=== PATIENT | female | born 1955 | race Caucasian/White ===

== ENCOUNTER 2020-09-16 02:39 | Day surgery (SDC) | payer MEDICARE, BC, SELFPAY ==
[2020-09-05 09:46] VITALS: BMI 32.0
[2020-09-05 10:02] VITALS: BMI 32.0
--- NOTE | 2020-09-13 17:32 | WPDANESEPP ---
Anes - Eval Pre Procedure Procedure: Operation Date: 09/16/20 11:30 Proposed Procedures p Screening Colonoscopy - Roddy Ortiz MD Date/Time: 09/13/20 17:32 Pre Op Diagnosis: family hx of colon ca Patient Data Age: 64 Gender: F Height: 1.55 m Weight: 76.8 kg Allergies Allergy/AdvReac Type Severity Reaction Status Date / Time vancomycin Allergy Unknown unk Verified 09/05/20 09:44 Home Medications Medication Instructions Recorded Confirmed Type multivitamin 1 tablet PO DAILY 02/13/19 09/05/20 History calcium carbonate 600 mg calcium 600 mg PO BID 02/14/19 09/05/20 History (1,500 mg) tablet cholecalciferol (vitamin D3) 100 4,000 unit PO DAILY 02/14/19 09/05/20 History mcg (4,000 unit) capsule hydrochlorothiazide 12.5 mg tablet 12.5 mg PO DAILY #30 tablet 08/29/20 09/05/20 Rx lisinopril 20 mg tablet 20 mg PO DAILY #30 tablet 08/29/20 09/05/20 Rx omeprazole 40 mg capsule,delayed See Rx Instructions .ROUTE 08/29/20 09/05/20 Rx release .COMPLEX #90 cap Patient hx anesthesia problems: post op nausea/vomiting Family hx anesthesia problems: none PMFSH Past Medical History Medical History (Updated 09/13/20 @ 17:33 by Riccardo Campos DO) Dyslipidemia Gastroesophageal reflux disease without esophagitis Hyperinflation of lungs Hypertension Low serum IgG2 subclass level Surgical History Surgical History (Updated 09/13/20 @ 17:33 by Riccardo Campos DO) History of bladder repair surgery History of total left knee replacement Family History Family History (Updated 09/06/15 @ 23:19 by DOCTOR UNKNOWN) Sibling Hypertension Family history of diabetes mellitus in first degree relative Grandparent Carcinoma of colon Father Family history of congestive heart failure Social History Social History Smoking status: Never smoker Alcohol intake: current Drinks per week: 4 Alcohol use details: COUPLE TIMES A WEEK Substance use: never Substance use type: does not use Living arrangements: with family Spiritual care concerns: No Exam Day of Procedure 09/13/20 17:32
--- NOTE | 2020-09-16 10:19 | PM.HPGS ---
History of Present Illness History of Present Illness Consent: Risks, benefits, and alternatives have been discussed and questions answered. Patient agrees to proceed with procedure. Chief complaint: family hx of colon ca Narrative: Karely Cannon is a 64 year old female With a family history of colon cancer. Review of Systems Review of Systems: All systems reviewed & are unremarkable except as noted in HPI and below PMFSH Past Medical History Medical History Dyslipidemia Gastroesophageal reflux disease without esophagitis Hyperinflation of lungs Hypertension Low serum IgG2 subclass level Surgical History Surgical History History of bladder repair surgery History of total left knee replacement Family History Family History Sibling Hypertension Family history of diabetes mellitus in first degree relative Grandparent Carcinoma of colon Father Family history of congestive heart failure Social History Social History Smoking status: Never smoker Alcohol intake: current Drinks per week: 4 Alcohol use details: COUPLE TIMES A WEEK Substance use: never Substance use type: does not use Living arrangements: with family Spiritual care concerns: No Meds Home Medications and Allergies Home Medications Medication Instructions Recorded Confirmed Type multivitamin 1 tablet PO DAILY 02/13/19 09/05/20 History calcium carbonate 600 mg calcium 600 mg PO BID 02/14/19 09/05/20 History (1,500 mg) tablet cholecalciferol (vitamin D3) 100 4,000 unit PO DAILY 02/14/19 09/05/20 History mcg (4,000 unit) capsule hydrochlorothiazide 12.5 mg tablet 12.5 mg PO DAILY #30 tablet 08/29/20 09/05/20 Rx lisinopril 20 mg tablet 20 mg PO DAILY #30 tablet 08/29/20 09/05/20 Rx omeprazole 40 mg capsule,delayed See Rx Instructions .ROUTE 08/29/20 09/05/20 Rx release .COMPLEX #90 cap Allergies Allergy/AdvReac Type Severity Reaction Status Date / Time vancomycin Allergy Unknown unk Verified 09/05/20 09:44 Exam Resp: Auscultation: clear to auscultation bilaterally Cardio: Rate: regular rate Rhythm: regular rhythm GI: GI Palp: Yes Soft to palpation and No Tenderness to palpation present (GI) Assessment and Plan Assessment and plan (1) Colon cancer screening: Code(s): Z12.11 - Encounter for screening for malignant neoplasm of colon Status: Acute Assessment and Plan: Colonoscopy with possible biopsy or polypectomy or cautery or injection of substances.
[2020-09-16 10:24] VITALS: BP 140/60; PULSE 56; RESP 16; TEMP 36.6; O2SAT 98; BMI 31.3
[2020-09-16] MEDS: LACTATED RINGERS 1,000 ML 150 ML IV CONT (10:26)
--- NOTE | 2020-09-16 10:42 | P.PNAN_ITS ---
Anes - Eval Final PreProcedure Day of Procedure 09/16/20 10:42 Patient weight: obese Heart: regular rate and rhythm Lungs: clear to auscultation Airway: Mallampati scale class II Neurological: alert and oriented Last oral intake: >/= 8 hours ASA classification: II Emergent: no Anesthetic plan: proceed Anesthesia type and monitoring: general GIVS and standard monitoring Informed Consent: The patient's anesthetic plan and its attendant risks and be nefits were discussed with the patient/family/POA. Questions were solicited and answers provided to the satisfaction of the patient/family/POA.
[2020-09-16 11:17] VITALS: BP 109/60; PULSE 69; RESP 20; O2SAT 99
[2020-09-16 11:27] VITALS: BP 125/63; PULSE 58; RESP 20; O2SAT 99
[2020-09-16 11:37] VITALS: BP 117/61; PULSE 57; RESP 16; O2SAT 99
== END 2020-09-16 11:44 | disposition home or self-care (01) ==
PROVIDERS: PCP Internal Medicine; Visit Provider Internal Medicine Gastroenterology
PROC: 0DJD8ZZ Inspection of Lower Intestinal Tract, Via Natural or Artificial Opening Endoscopic (ICD-10-PCS; CPT 45378; principal; 2020-09-16 11:30)
DX: Z12.11 Encounter for screening for malignant neoplasm of colon (principal); K57.30 Diverticulosis of large intestine without perforation or abscess without bleeding; Z80.0 Family history of malignant neoplasm of digestive organs; I10 Essential (primary) hypertension; E78.5 Hyperlipidemia, unspecified; K21.9 Gastro-esophageal reflux disease without esophagitis
CPT/HCPCS: G0105; J2704; J7120

== ENCOUNTER → 2021-01-23 10:07 | Outpatient (CLI) | payer MEDICARE, SELFPAY ==
--- NOTE | ~2021-01-23 | CT_ITS ---
EXAMINATION: CT diagnostic chest w con EXAM DATE: 01/23/2021 10:43 INDICATION: J47.9 - Bronchiectasis, uncomplicated. TECHNIQUE: Spiral CT of the chest following intravenous injection of 75 mL Omnipaque 350. Axial, cor onal and sagittal images of the chest were reviewed. Coronal maximum intensity pixel images of chest reviewed. The dose-length product (DLP) for this examination was 255.72 mGy-cm. The exposure was t ailored according to patient size (auto mA exposure control), and iterative reconstruction (ASIR) was used as additional dose reduction technique. Comparison is made to prior examination from 07/27/2018. FINDINGS: Mild bronchiectasis unchanged. Mild basilar peripheral predominant interlobular septal thi ckening, likely interstitial lung disease with mild progression. No superimposed acute airspace disea se. There are no pleural or pericardial effusions. Tracheobronchial tree is patent. There is 9 x 12 mm right axillary lymph node, upper limits of normal in size. This lymph node was much smaller, i s largest lymph node thoracic identified. There is no pneumothorax. Heart normal in size. There is mild coronary arterial calcification, arterial sclerosis. Upper abdomen is unremarkable. Fused T10 and 11 vertebral bodies. IMPRESSION: 1. Mild progression in interstitial lung disease, still mild. 2. Mild bronchiectasis unchanged. 3. Interval increase in size of right axillary lymph nodes, largest still within normal size limits. Reviewed, dictated and finalized at location B. INSPECTOR IMPRESSION: 1. Mild progression in interstitial lung disease, still mild. 2. Mild bronchiectasis unchanged. 3. Interval increase in size of right axillary lymph nodes, largest still with in normal size limits.
[2021-01-23 10:26] LABS: Estimated Glomerular Filt Rate > 60
== END ==
PROVIDERS: PCP Internal Medicine; Visit Provider Internal Medicine Critical Care Medicine
DX: J47.9 Bronchiectasis, uncomplicated (principal); J84.9 Interstitial pulmonary disease, unspecified; I25.10 Atherosclerotic heart disease of native coronary artery without angina pectoris; I70.90 Unspecified atherosclerosis
CPT/HCPCS: 71260; Q9967

== ENCOUNTER → 2021-03-06 09:49 | Outpatient (CLI) | payer MEDICARE, SELFPAY ==
--- NOTE | ~2021-03-06 | MM_ITS ---
EXAMINATION: MM scrn dane implant BI w emre HISTORY: Screening mammogram, history of breast implant replacement after rupture TECHNIQUE: Craniocaudal and mediolateral oblique 3-D tomosynthesis images with implant displacement a nd synthetic 2-D images were generated. Craniocaudal and mediolateral oblique views of the breasts wi thout implant displacement were obtained using full field digital mammography. CAD analysis was submi tted and interpreted. COMPARISON: 07/27/2018, 07/29/2015, 07/30/2014 BREAST PARENCHYMAL COMPOSITION: There are scattered areas of fibroglandular density. FINDINGS: A small amount of extravasated silicone is noted in both breasts. There is no evidence of s uspicious mass, calcification, or architectural distortion to suggest malignancy in either breast. Th ere has been no suspicious interval change. IMPRESSION: 1. No mammographic evidence of malignancy. 2. Recommend routine screening mammography in one year. BI-RADS Category 2: Benign finding(s). Reviewed, dictated and finalized at location A. MINER
== END ==
PROVIDERS: PCP Internal Medicine; Visit Provider Obstetrics & Gynecology
DX: Z12.31 Encounter for screening mammogram for malignant neoplasm of breast (principal)
CPT/HCPCS: 77063; 77067

== ENCOUNTER → 2021-03-06 09:50 | Outpatient (CLI) | payer MEDICARE, SELFPAY ==
--- NOTE | ~2021-03-06 | DEXA_ITS ---
Bone Density Report Name: DELVIS PARSONS Age: 65 Sex: Female Ethnicity: White Date of : 1955 Indication: osteopenia; height loss; hysterectomy; postmenopausal Referring Provider: ANDRÉS COLLADO Study: Bone densitometry was performed. Exam Date: March 06, 2021 Accession number: [id number] Bone Density: Region BMD T-score Z-score Classification AP Spine (L1-L4) 0.859 -1.7 0.2 Osteopenia Femoral Neck (Left) 0.755 -0.8 0.8 Normal Total Hip (Left) 0.884 -0.5 0.9 Normal Femoral Neck (Right) 0.685 -1.5 0.2 Osteopenia Total Hip (Right) 0.854 -0.7 0.6 Normal Total Hip Mean 0.869 -0.6 0.8 Normal World Health Organization criteria for BMD impression classify patients as: Normal (T-score at or above -1.0), Osteopenia (T-score between -1.0 and -2.5), or Osteoporosis (T-score at or below -2.5). 10-year Fracture Risk(1): Major Osteoporotic Fracture 8.8% Hip Fracture 0.9% Reported Risk Factors: [place] (), Neck BMD=0.685, BMI=31.3 (1) FRAX(R) Version 3.08. Fracture probability calculated for an untreated patient. Fracture probability may be lower if the patient has received treatment. Previous Exams: Region Exam Age BMD T-score BMD Change BMD Change Date g/cm2 vs Baseline vs Previous AP Spine(L1-L4) 03/06/2021 65 0.859 -1.7 -0.004 -0.004 07/27/2018 62 0.863 -1.7 Total Hip(Left) 03/06/2021 65 0.884 -0.5 0.050* 0.050* 07/27/2018 62 0.834 -0.9 Total Hip(Right) 03/06/2021 65 0.854 -0.7 -0.009 -0.009 07/27/2018 62 0.863 -0.6 *Denotes significance at 95% confidence level, LSC for AP Spine = 0.022 g/cm2, LSC for Total Hip = 0.027 g/cm2 Clinical Information Provided by Patient: Has the following medical conditions: Hysterectomy Patient maximum height was 62 Menopause Age: 48 No regular weight bearing exercise Drinks caffeinated beverages Onset of menses at age 11 Number of children 2 Missed period for more than 6 months in a row Impression: The patient has low bone mass, based on the Total Spine T-score. The patient has an estimated ten-year risk of hip fracture of 0.9% and an estimated ten-year risk of major fracture of 8.8%, based on the WHO FRAX algorithm. No significant bone loss was observed. Discussion: BONE DENSITY IS LOW AT ONE OR MORE SKELETAL SITES. This patient's lowest T-score is low at one or more skeletal sites. It meets the World Health Organi
== END ==
PROVIDERS: PCP Internal Medicine; Visit Provider Internal Medicine
DX: Z78.0 Asymptomatic menopausal state (principal); M85.88 Other specified disorders of bone density and structure, other site; M85.851 Other specified disorders of bone density and structure, right thigh
CPT/HCPCS: 77080

== ENCOUNTER → 2021-07-28 09:57 | Outpatient (CLI) | payer MEDICARE, SELFPAY ==
--- NOTE | ~2021-07-28 | CT_ITS ---
EXAMINATION: CT chest high resolution wo mn DATE: 07/28/2021 10:09 INDICATION: Interstitial lung disease TECHNIQUE: Computed tomography (CT) of the chest was performed without intravenous contrast. The dose -length product (DLP) was 246.68 mGy-cm. Automated exposure control and iterative reconstruction tech nique were employed. COMPARISON: 01/23/2021 FINDINGS: There is chronic mild bronchiectasis of the lower lobes. Subpleural reticular and groundgla ss opacities with a lower lung zone predominance demonstrates slight worsening. There is no honeycomb ing. There are no focal airspace opacities. No pleural effusion or pneumothorax. No pathologically en larged thoracic lymph nodes are identified. The heart size is normal. Bilateral breast implants are n oted. There is mild thoracic spondylosis. IMPRESSION: 1. Mild lower lung zone predominant interstitial lung disease with slight worsening Reviewed, dictated and finalized at location A. IMPRESSION: 1. Mild lower lung zone predominant interstitial lung disease with slight worse clara
== END ==
PROVIDERS: PCP Internal Medicine; Visit Provider Internal Medicine Critical Care Medicine
DX: J84.9 Interstitial pulmonary disease, unspecified (principal)
CPT/HCPCS: 71250

== ENCOUNTER 2021-10-30 07:54 | Outpatient (CLI) | payer MEDICARE, BC, SELFPAY ==
--- NOTE | 2021-10-30 12:14 | WPDPFTINT ---
PFT Procedure Performed PFT Procedure Performed Spirometry with Pre/Post Bronchodilator Plethysmography (Lung Vol) Diffusing Cap (DLCO) Flow Vol Loop PFT Interpretation This is a pulmonary function test with pre and post-bronchodilator spirometry, plethysmography and diffusing capacity. The test was performed and results interpreted in accordance with the 2019 and 2005 ATS/ERS Task Force guidelines respectively using the Global Lung Function Initiative-2012 reference equations. Patient demonstrated good effort and cooperation. Reproducibility criteria were met. The quality of the pre bronchodilator spirometry maneuver was Grade A and post bronchodilator spirometry maneuver was Grade A. Findings: Spirometry: the contour the inspiratory and expiratory flow tracing are normal. The pre bronchodilator FVC is 3.04 L, 113% predicted. The pre bronchodilator FEV1 is 2.34 L, 111% predicted. The pre bronchodilator FEV1: FVC ratio 77%. The post bronchodilator FVC is 2.92 L, representing a 4% decrease. The post bronchodilator FEV1 is 2.37 L, representing 1% increase. The post bronchodilator FEV1: FVC ratio was 81%. Plethysmography: The total lung capacity is 4.80 L, 103% predicted. The functional residual capacity is 2.11 L, 80% predicted. The residual volume is 1.69 L, 85% predicted. Diffusion capacity: The diffusing capacity unadjusted for hemoglobin and carboxyhemoglobin is 14.4, 72% predicted. The diffusing capacity adjusted for alveolar volume is 3.65, 82% predicted. In comparison to previous pulmonary function test on 09/09/2017 the post bronchodilator FVC is unchanged from 2.96 L to 2.92 L. The post bronchodilator FEV1 is unchanged from 2.44 L to 2.37 L. The total lung capacity is unchanged from 5.01 L to 4.80 L. The functional residual capacity is unchanged from 2.14 L to 2.11 L. The residual volume is unchanged from 1.89 L to 1.69 L. The diffusing capacity unadjusted for hemoglobin and carboxyhemoglobin is decreased from 16.9 to 14.4. The diffusing capacity adjusted for alveolar volume is unchanged from 4.05 to 3.65 Impression: The spirometry is normal without evidence of an obstructive abnormality. There is no significant improvement after inhaling a single dose of albuterol. The lung volumes are normal. The diffusing capacity is normal. in comparison to the previous pulmonary function test on 09/09/2017 there has been a greater than anticipated time to pendant decrease in the diffusing capacity unadjusted for hemoglobin and carboxyhemoglobin with no significant change in the FVC, FEV1, total lung capacity, functional residual capacity, residual volume and diffusing capacity adjusted for alveolar volume. Clinical correlation is recommended.
== END 2021-10-30 07:55 | disposition home or self-care (01) ==
LOC: ANHPFT 07:55
PROVIDERS: PCP Internal Medicine; Visit Provider Internal Medicine Critical Care Medicine
DX: J84.9 Interstitial pulmonary disease, unspecified (principal)
CPT/HCPCS: 94060; 94726; 94729

== ENCOUNTER 2021-11-11 10:46 | Outpatient (CLI) | payer MEDICARE, BC, SELFPAY ==
--- NOTE | ~2021-11-11 | XR_ITS ---
MODIFIED ESOPHAGRAM HISTORY: Dysphagia. TECHNIQUE: Modified barium esophagram was performed by speech pathologist under radiologist fluorosco pic guidance. This was recorded on tape. The exam was reviewed on 11/11/2021 12:09 CDT. The DAP for this procedure was 0.91 Gycm2. Fluoroscopy time is 1.4 minutes. FINDINGS: Lateral projection of the cervical spine demonstrates degenerative anterolisthesis at C4- 5. There is fusion at C5-6.. There is one episode of laryngeal penetration after swallowing solid whi ch was cleared without aspiration. Otherwise, normal swallowing function.. IMPRESSION: 1: Single episode of laryngeal penetration without aspiration. 2: Please refer to speech pathologist report for additional detail. Reviewed, dictated and finalized at location A.
--- NOTE | 2021-11-11 16:31 | REHSTMBS ---
Assessment and note entered by Nimisha Nielsen, [employer]ENN[employer] DESK TEAM MEMBER Modified Barium Swallow Evaluation Diagnosis dysphagia Feeding Type Recommended Oral Food Consistency Regular, Level 7 Liquid Consistency Thin (0) ST Clinical Summary The patient was seated for a lateral view and presented with 5cc of thin liquid barium via a spoon, pudding consistency barium via a spoon, mixed liquid/solid consistency via a spoon, a cracker coated with barium pudding via spoon, and an uncontrolled thin liquid barium bolus. This was presented via a straw & cup. Oral preparatory and oral phase symptoms: none. Pharyngeal phase symptoms: laryngeal penetration after the initial trial of solids (occurred as pt swallowed remaining amount); it was cleared with dry swallow with no occurrence of aspiration. Esophageal stage symptoms: none. No aspiration occurred. Impressions: Overall, the patient presents with functional swallow ability throughout all stages of the swallow; however, laryngeal penetration was exhibited x1 instance with solid trial. It was cleared without any instances of aspiration.
== END 2021-11-11 10:47 | disposition home or self-care (01) ==
PROVIDERS: PCP Internal Medicine; Visit Provider Internal Medicine Critical Care Medicine
DX: J84.9 Interstitial pulmonary disease, unspecified (principal); R13.10 Dysphagia, unspecified
CPT/HCPCS: 92611

== ENCOUNTER 2022-01-23 00:48 | Day surgery (SDC) | payer MEDICARE, BC, SELFPAY ==
[2022-01-16 13:43] VITALS: BMI 31.8
--- NOTE | 2022-01-22 20:39 | PM.HPGS ---
History of Present Illness History of Present Illness Consent: Risks, benefits, and alternatives have been discussed and questions answered. Patient agrees to proceed with procedure. Chief complaint: GERD Narrative: Karely Cannon is a 66 year old female With chronic acid reflux symptoms which have become refractory. She has been regurgitating at night lately. her primary care provider doubled her omeprazole to twice a day. 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 Low serum IgG2 subclass level Mixed hyperlipidemia Osteopenia of multiple sites Postmenopausal Pre-diabetes Preoperative clearance Right flank pain RUQ pain Screening for osteoporosis Serum potassium elevated Surgical History Surgical History History of bladder repair surgery History of total left knee replacement Family History Family History Sibling Hypertension Family history of diabetes mellitus in first degree relative Grandparent Carcinoma of colon Father Family history of congestive heart failure Social History Social History Smoking status: Never smoker Second hand tobacco smoke exposure: Yes Alcohol intake: current Drinks per week: 4 Alcohol use details: COUPLE TIMES A WEEK Substance use: never Substance use type: does not use Lack of Transportation: No Lack of Food: Never True Current Housing: I Have Housing Concerned About Future Housing: No Difficulty Paying Gas/Electric Bills: No Difficulty Paying for Meds: No Currently Unemployed: No Education: High School Diploma/GED Difficulty w/ Childcare or Family Care: No Living arrangements: with family Spiritual care concerns: No Meds Home Medications and Allergies Home Medications Medication Instructions Recorded Confirmed Type multivitamin 1 tablet PO DAILY 02/13/19 01/16/22 History calcium carbonate 600 mg calcium 600 mg PO BID 02/14/19 01/16/22 History (1,500 mg) tablet (Calcium) dicyclomine 10 mg capsule 10 mg PO TID PRN abdominal pain 12/27/20 01/16/22 Rx #30 caps conjugated estrogens 0.625 mg/gram 0.625 mg vaginal ONCE #30 grams 03/17/21 01/16/22 Rx vaginal cream (Premarin) hydrochlorothiazide 12.5 mg tablet 12.5 mg PO DAILY #90 tabs 09/04/21 01/16/22 Rx lisinopril 20 mg tablet 20 mg PO DAILY #90 tabs 09/04/21 01/16/22 Rx pantoprazole 40 mg tablet,delayed 40 mg PO BID #60 tabs 01/13/22 01/16/22 Rx release Allergies Allergy/AdvReac Type Severity Reaction Status Date / Time vancomycin Allergy Unknown unk Verified 01/16/22 13:41 Exam Const: General: alert Orientation/consciousness: patient oriented x3 Resp: Auscultation: clear to auscultation bilaterally Cardio: Rhythm: regular rhythm GI: GI Palp: Yes Soft to palpation and No Tenderness to palpation present (GI) Neuro: General: patient oriented x3 Assessment and Plan Assessment and plan (1) Gastroesophageal reflux disease without esophagitis: Code(s): K21.9 - Gastro-esophageal reflux disease without esophagitis Status: Acute Assessment and Plan: EGD with possible biopsy or dilatation or cautery.
[2022-01-23 12:22] VITALS: BP 140/75; PULSE 68; RESP 18; TEMP 36.2; O2SAT 98
[2022-01-23] MEDS: LACTATED RINGERS 1,000 ML 150 ML IV CONT (12:38)
--- NOTE | 2022-01-23 12:53 | WPDANESEPPF ---
Anes - Initial Pre Proc Eval Procedure: Operation Date: 01/23/22 13:45 Proposed Procedures p Esophagogastroduodenoscopy - oRddy Ortiz MD Date/Time: 01/23/22 12:53 Surgeon: Roddy Ortiz MD Pre Op Diagnosis: GERD Patient Data Age: 66 Gender: F Height: 1.55 m Weight: 76.4 kg Last Vital Signs Temp 97.2 F L 01/23/22 12: Pulse 68 01/23/22 12:22 Resp 18 01/23/22 12:22 BP 140/75 01/23/22 12:22 Pulse Ox 98 01/23/22 12:22 O2 Del Method Room Air 01/23/22 12:22 Allergies Allergy/AdvReac Type Severity Reaction Status Date / Time vancomycin Allergy Unknown unk Verified 01/16/22 13:41 Home Medications Medication Instructions Recorded Confirmed Type multivitamin 1 tablet PO DAILY 02/13/19 01/16/22 History calcium carbonate 600 mg calcium 600 mg PO BID 02/14/19 01/16/22 History (1,500 mg) tablet (Calcium) dicyclomine 10 mg capsule 10 mg PO TID PRN abdominal pain 12/27/20 01/16/22 Rx #30 caps conjugated estrogens 0.625 mg/gram 0.625 mg vaginal ONCE #30 grams 03/17/21 01/16/22 Rx vaginal cream (Premarin) hydrochlorothiazide 12.5 mg tablet 12.5 mg PO DAILY #90 tabs 09/04/21 01/16/22 Rx lisinopril 20 mg tablet 20 mg PO DAILY #90 tabs 09/04/21 01/16/22 Rx pantoprazole 40 mg tablet,delayed 40 mg PO BID #60 tabs 01/13/22 01/16/22 Rx release Patient hx anesthesia problems: none Family hx anesthesia problems: none Results Review: All pre-operative results and documents have been reviewed as part of the pre-operative evaluation. 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 Low serum IgG2 subclass level Mixed hyperlipidemia Osteopenia of multiple sites Postmenopausal Pre-diabetes Preoperative clearance Right flank pain RUQ pain Screening for osteoporosis Serum potassium elevated Surgical History Surgical History History of bladder repair surgery History of total left knee replacement Family History Family History Sibling Hypertension Family history of diabetes mellitus in first degree relative Grandparent Carcinoma of colon Father Family history of congestive heart failure Social History Social History (Updated 12/24/21 @ 10:21 by Terrie Wise MA) Smoking status: Never smoker Second hand tobacco smoke exposure: Yes Alcohol intake: current Drinks per week: 4 Alcohol use details: COUPLE TIMES A WEEK Substance use: never Substance use type: does not use Lack of Transportation: No Lack of Food: Never True Current Housing: I Have Housing Concerned About Future Housing: No Difficulty Paying Gas/Electric Bills: No Difficulty Paying for Meds: No Currently Unemployed: No Education: High School Diploma/GED Difficulty w/ Childcare or Family Care: No Living arrangements: with family Spiritual care concerns: No Anes - Eval Final PreProcedure Day of Procedure 01/23/22 12:53 Patient weight: obese Heart: regular rate and rhythm Lungs: clear to auscultation Airway: Mallampati scale class II Neurological: alert and oriented Last oral intake: >/= 8 hours ASA classification: II Emergent: no Anesthetic plan: proceed Anesthesia type and monitoring: general GIVS and standard monitoring Results Review: All pre-operative results and documents have been reviewed as part of the pre-operative evaluation
[2022-01-23 13:54] VITALS: BP 122/71; PULSE 60; RESP 20; O2SAT 100
[2022-01-23 14:04] VITALS: BP 131/70; PULSE 56; RESP 20; O2SAT 100
[2022-01-23 14:14] VITALS: BP 130/63; PULSE 58; RESP 20; O2SAT 99
== END 2022-01-23 14:20 | disposition home or self-care (01) ==
PROVIDERS: PCP Internal Medicine; Visit Provider Internal Medicine Gastroenterology
PROC: 0DJ08ZZ Inspection of Upper Intestinal Tract, Via Natural or Artificial Opening Endoscopic (ICD-10-PCS; CPT 43235; principal; 2022-01-23 13:45)
DX: K21.9 Gastro-esophageal reflux disease without esophagitis (principal); K22.2 Esophageal obstruction; I10 Essential (primary) hypertension; E78.2 Mixed hyperlipidemia; R73.03 Prediabetes; E66.9 Obesity, unspecified; Z68.31 Body mass index [BMI] 31.0-31.9, adult
CPT/HCPCS: 43239; 88305; J2704; J7120

== ENCOUNTER → 2022-03-03 09:39 | Outpatient (CLI) | payer MEDICARE, BC, SELFPAY ==
--- NOTE | ~2022-03-03 | CT_ITS ---
EXAMINATION:CT chest high resolution wo co DATE: 03/03/2022 09:58 INDICATION: Interstitial lung disease. TECHNIQUE: Computed tomography (CT) of the chest was performed without intravenous contrast. Automate d exposure control and iterative reconstruction technique were employed. The dose-length product (DLP ) was 265.65 mGy-cm. COMPARISON: Chest CT 07/28/2021, 01/23/2021 FINDINGS: There is mild scarring at the lung apices. There is a left posteromedial diaphragmatic shilo ia containing fat. There is peripheral septal thickening in the inferior lungs associated with mild g roundglass opacities. There is mild bronchiectasis in the inferior lungs. No honeycombing. No pleural effusion. The heart size is normal. There are coronary artery calcifications. No pericardial effusio n. There are bilateral breast implants with intracapsular rupture on the right. There is a 19 x 16 mm right axillary lymph node. There is an 8 mm cyst in the liver. IMPRESSION: 1. Mild chronic interstitial lung disease in a pattern of nonspecific interstitial pneumonia (NSIP), stable from 07/28/2021. 2. Mildly enlarged right axillary lymph node. 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 Consider a diagnostic mammogram. Reviewed, dictated and finalized at location A. ORT REPRESENTATIVE IMPRESSION: 1. Mild chronic interstitial lung disease in a pattern of nonspecific interstit ial pneumonia (NSIP), stable from 07/28/2021. 2. Mildly enlarged right axillary lymph node. 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 Consider a rica gnostic mammogram.
== END ==
PROVIDERS: PCP Internal Medicine; Visit Provider Internal Medicine Critical Care Medicine
DX: J84.9 Interstitial pulmonary disease, unspecified (principal); R59.0 Localized enlarged lymph nodes
CPT/HCPCS: 71250

== ENCOUNTER 2022-03-10 09:54 | Outpatient (CLI) | payer MEDICARE, BC, SELFPAY ==
--- NOTE | ~2022-03-10 | US_ITS ---
EXAMINATION: US abdomen complete DATE: 03/10/2022 10:45 INDICATION: R10.13 - Epigastric pain TECHNIQUE: Multiple grayscale and Doppler ultrasound images of the abdomen were obtained. COMPARISON: 07/27/2018, CT chest 03/03/2022 CT abdomen and pelvis 01/27/2017. FINDINGS: The visualized portions of the pancreas are normal. The liver is normal with normal echogen icity and echotexture. No surface nodularity. Normal hepatopetal flow in the main portal vein. The ga llbladder is normal with no abnormal wall thickening, pericholecystic fluid or stones. The common rod e duct measures 3 mm. There was no sonographic Perez sign. The visualized portions of the aorta and inferior vena cava are normal. The right kidney measures 10.5 x 5.5 x 4.8. The left kidney measures 10.9 x 5.8 x 5.1. The kidneys de monstrate normal parenchymal echogenicity. There is no hydronephrosis. The spleen is normal in appear ance and measures 10.5 cm. IMPRESSION: Normal abdominal ultrasound findings. Reviewed, dictated and finalized at location K. ED GOLD PLATER
== END 2022-03-10 09:55 | disposition home or self-care (01) ==
PROVIDERS: PCP Internal Medicine; Visit Provider Internal Medicine Gastroenterology
DX: R10.13 Epigastric pain (principal)
CPT/HCPCS: 76700

== ENCOUNTER → 2022-03-23 09:04 | Outpatient (CLI) | payer MEDICARE, BC, SELFPAY ==
--- NOTE | ~2022-03-23 | MM_ITS ---
EXAMINATION: MM diag dane implant BI w emre HISTORY: Mildly enlarged right axillary lymph node reported on 02/27/2022 CT chest exam TECHNIQUE: Implant displaced ML, MLO and CC 3-D tomosynthesis images of both breasts were performed a nd synthetic 2-D images were generated. Bilateral ML, MLO and CC implant digital mammogram images. CA D analysis was submitted and interpreted. COMPARISON: 03/06/2021, 07/27/2018 bilateral implant screening mammogram examinations BREAST PARENCHYMAL COMPOSITION: There are scattered areas of fibroglandular density. FINDINGS: Status post bilateral augmentation mammoplasty. No suspicious mass, architectural distortion, microcalcifications, skin thickening or retraction of e ither breast or significant new or developing density of either breast is noted. Bilateral circumscri bed benign-appearing axillary lymph nodes. IMPRESSION: 1. No mammographic evidence of malignancy 2. Routine mammographic screening is recommended BI-RADS Category 1: Negative Reviewed, dictated and finalized at location A. TY SHERIFF GENERALIST/BAILIFF
== END ==
PROVIDERS: PCP Internal Medicine; Visit Provider Nurse Practitioner
DX: R59.0 Localized enlarged lymph nodes (principal)
CPT/HCPCS: 77062; 77066; G0279

== ENCOUNTER 2022-04-23 07:52 | Outpatient (CLI) | payer MEDICARE, BC, SELFPAY ==
--- NOTE | 2022-04-23 13:52 | WPDPFTINT ---
PFT Procedure Performed PFT Procedure Performed Spirometry with Pre/Post Bronchodilator Plethysmography (Lung Vol) Diffusing Cap (DLCO) Flow Vol Loop PFT Interpretation This is a pulmonary function test with pre and post-bronchodilator spirometry, plethysmography and diffusing capacity. The test was performed and results interpreted in accordance with the 2019 and 2005 ATS/ERS Task Force guidelines respectively using the Global Lung Function Initiative-2012 reference equations. Patient demonstrated good effort and cooperation. Reproducibility criteria were met. The quality of the pre bronchodilator spirometry maneuver was Grade A and post bronchodilator spirometry maneuver was Grade A. Findings: Spirometry: The contour the inspiratory and expiratory flow tracing are normal. The pre bronchodilator FVC is 3.17 L, 119% predicted. The pre bronchodilator FEV1 is 2.50 L, 121% predicted. The pre bronchodilator FEV1: FVC ratio 79%. The post bronchodilator FVC is 3.05 L, representing a 4% decrease. The post bronchodilator FEV1 is 2.48 L, representing 1% decrease. The post bronchodilator FEV1: FVC ratio is 81%. Plethysmography: The total lung capacity is 5.04 L, 108% predicted. The functional residual capacity is 2.33 L, 88% predicted. The residual volume is 1.87 L, 92% predicted. Diffusing capacity: The diffusing capacity unadjusted for hemoglobin and carboxyhemoglobin is 15.0, 76% predicted. The diffusing capacity adjusted for alveolar volume is 3.61, 81% predicted. In comparison to previous pulmonary function test on 10/30/2021 the post bronchodilator FVC is unchanged from 2.92 L to 3.05 L. The post bronchodilator FEV1 is unchanged from 2.37 L to 2.48 L. The total lung capacity is unchanged from 4.80 L to 5.04 L. The functional residual capacity is unchanged from 2.11 L to 2.33 L. The residual volume is unchanged from 1.69 L to 1.87 L. The diffusion capacity unadjusted for hemoglobin and carboxyhemoglobin is unchanged from 14.4 to 15.0. The diffusing capacity adjusted for alveolar volume is unchanged from 3.65 to 3.61. Impression: The spirometry is normal without evidence of an obstructive abnormality. There is no significant improvement after inhaling a single dose of albuterol. The lung volumes are normal. The diffusing capacity is normal. In comparison to PFTs from 10/30/2021 there has been no significant change in the FVC, FEV1, total lung capacity, functional residual capacity, residual volume, or diffusing capacity. Clinical correlation is recommended.
== END 2022-04-23 07:53 | disposition home or self-care (01) ==
LOC: ANHPFT 07:53
PROVIDERS: PCP Internal Medicine; Visit Provider Internal Medicine Critical Care Medicine
DX: J84.9 Interstitial pulmonary disease, unspecified (principal)
CPT/HCPCS: 94060; 94726; 94729

== ENCOUNTER 2022-06-03 15:15 | Emergency (ER) | payer MEDICARE, BC, SELFPAY ==
[2022-06-03] VITALS (25 sets, daily range): BP systolic 105–137; BP diastolic 49–84; PULSE 66–99; RESP 11–28; TEMP 36.4; O2SAT 92–100
--- NOTE | ~2022-06-03 | XR_ITS ---
EXAMINATION: XR chest 2V DATE: 06/03/2022 15:57 INDICATION: Transient alteration of awareness TECHNIQUE: AP and lateral views of the chest are obtained. COMPARISON: None available FINDINGS: The lungs are free of acute opacities. No pleural effusion or pneumothorax. The cardiomedia stinal silhouette is normal. There is moderate thoracic spondylosis. Bilateral breast implants are no pam. IMPRESSION: 1. No acute cardiopulmonary abnormality. Reviewed, dictated and finalized at location B.
--- NOTE | 2022-06-03 15:22 | ECG_ITS ---
Measurements Intervals [place] Rate: 80 P: 43 UT: 132 QRS: -4 QRSD: 98 T: -7 QT: 387 QTc: 447 Interpretive Statements SINUS RHYTHM MODERATE VOLTAGE CRITERIA FOR LVH, CONSIDER NORMAL VARIANT [MEETS CRITERIA IN ONE OF: R(aVL), S(V1), R(V5), R(V5/V6)+S(V1)] INFERIOR MYOCARDIAL INFARCTION , OF INDETERMINATE AGE [40+ ms Q WAVE AND/OR ST/T ABNORMALITY IN II/aVF] NONSPECIFIC T-WAVE ABNORMALITY ABNORMAL EKG NO PREVIOUS ECG AVAILABLE FOR COMPARISON Electronically Signed On 06-04-2022 8:56:58 CDT by Roger Lockwood M.D.
--- NOTE | 2022-06-03 15:27 | ED.SYNCOPE ---
HPI - Syncope General Chief Complaint: Syncope Stated Complaint: syncope Time Seen by Provider: 06/03/22 15:24 Source: patient and family Mode of arrival: wheelchair Limitations: no limitations History of Present Illness HPI narrative: Patient is a 66-year-old female with a history of hypertension and acid reflux presenting to the emergency department for evaluation following a syncopal event. Patient states that she had been fasting for 16 hours as part of a diet plan. Patient reports that she was going to break the fast and make breakfast around 12:30 PM this afternoon, when she felt she needed to have a bowel movement. Patient was sitting down at that time, and when she went to stand up became lightheaded, dizzy, diaphoretic and pale. Patient's noticed that her legs were weak and lowered her back down to the chair where then she lost consciousness for short period of time. Patient's was able to use his home glucometer to check her blood glucose which was greater than 100. Patient quickly regained her consciousness and was not confused, thus patient was transported via personal vehicle to this emergency department by . At the time of assessment, patient reports fatigue, generalized weakness, nausea. She denies headache pain, chest pain, palpitations. She denies shortness of breath, cough. No pleuritic pain. No leg swelling or calf pain. No recent surgery or immobility. Patient reports history of this in the past, reports history of syncope with bowel movements. Patient reports no oral intake since yesterday evening. Related Data Home Medications Medication Instructions Recorded Confirmed multivitamin 1 tablet PO DAILY 02/13/19 01/16/22 calcium carbonate 600 mg calcium 600 mg PO BID 02/14/19 01/16/22 (1,500 mg) tablet (Calcium) Allergies Allergy/AdvReac Type Severity Reaction Status Date / Time vancomycin Allergy Unknown unk Verified 05/12/22 11:09 Review of Systems Review of Systems: CONSTITUTIONAL: Denies fever, chills, or sweats. EYES: Denies visual changes, redness, or discharge. ENT: Denies rhinorrhea, congestion, sore throat, or otalgia. CARDIOVASCULAR: Denies chest pain, palpitations, or edema. RESPIRATORY: Denies cough or dyspnea. GASTROINTESTINAL: Denies abdominal pain, nausea, vomiting, or diarrhea. GENITOURINARY: Denies dysuria or hematuria. SKIN: Denies rash or itching. MUSCULOSKELETAL: Denies back pain, joint pain, or myalgia. NEUROLOGIC: Denies headache, numbness, reports generalized weakness PMFSH Past Medical History Medical History Acute non-recurrent maxillary sinusitis Acute right-sided low back pain without sciatica BMI 29.0-29.9,adult Body mass index [BMI] 27.0-27.9, adult (11/01/18) Dyslipidemia Encounter for routine adult health examination without abnormal findings Esophageal dysmotility Follow-up after removal of joint prosthesis Gastroesophageal reflux disease without esophagitis Herpes zoster without complication Hyperinflation of lungs Hypertension correction use of drug Low serum IgG2 subclass level Mixed hyperlipidemia Osteopenia of multiple sites Postmenopausal Pre-diabetes Preoperative clearance Right flank pain RUQ pain Screening for osteoporosis Serum potassium elevated Surgical History Surgical History History of bladder repair surgery History of total left knee replacement Family History Family History Sibling Hypertension Family history of diabetes mellitus in first degree relative Grandparent Carcinoma of colon Father Family history of congestive heart failure Social History Social History Smoking status: Never smoker Second hand tobacco smoke exposure: Yes Alcohol intake: current Drinks per week: 4 Al
[2022-06-03 16:02] LABS: Basophils Percent Auto 0.4 % (0.2-1.2); Eosinophils Absolute Auto 0.1 K/mm3 (0-0.3); Eosinophils Percent Auto 1.2 % (0-4.4); Hematocrit 39.9 % (37.0-47.0); Hemoglobin 13.4 g/dL (12.0-15.0); Immature Granulocyte Absolute 0.03 K/mm3 (0.00-0.031); Immature Granulocyte Percent A 0.4 % (0-0.5); Lymphocytes Absolute Auto 1.58 K/mm3 (0.9-3.2); Lymphocytes Percent Auto 21.2 % (18.3-44.2); Mean Corpuscular HGB Conc 33.6 g/dl (32-36); Mean Corpuscular Hemoglobin 30.4 pg (26-34); Mean Corpuscular Volume 90.5 fl (80-100); Monocytes Absolute Auto 0.4 K/mm3 (0.1-0.6); Monocytes Percent Auto 5.8 % (2.6-8.5); Neutrophils Absolute Auto 5.3 K/mm3 (1.3-6.7); Platelet Count Result 271 k/mm3 (150-375); Red Blood Count 4.41 M/mm3 (4.2-5.4); Red Cell Distribution Width 13.3 % (11.5-14.5); White Blood Count 7.5 K/mm3 (4.5-10.0)
[2022-06-03] MEDS: SODIUM CHLORIDE 0.9% IV 1,000 ML 999 ML IV CONT ×2 (16:16→17:27)
[2022-06-03] MEDS: ONDANSETRON INJ 4 MG/2 ML VIAL IV PUSH (16:16)
[2022-06-03 16:20] LABS: Alanine Aminotransferase 31 U/L (6-35); Albumin Level 4.9 g/dL (3.5-5.1); Alkaline Phosphatase 67 U/L (38-126); Anion Gap 9 mmol/L (8-16); Aspartate Amino Transferase 38 U/L (14-36); Bilirubin,Total 0.7 mg/dL (0.2-1.3); Blood Urea Nitrogen 36 mg/dL (7-17); Carbon Dioxide 28 mmol/L (22-30); Chloride 97 mmol/L (98-107); Estimated CRCL calculation 39 ml/min; Estimated Glomerular Filt Rate 45; Glucose 123 mg/dL (65-110); Potassium 3.4 mmol/L (3.4-5.0); Sodium 134 mmol/L (137-145)
[2022-06-03 16:31] LABS: Troponin I < 0.012 ng/mL (0.000-0.034)
[2022-06-03 16:37] LABS: Appearance Urine Turbid (Clear); Bacteria Urine 1+ /hpf; Bilirubin Urine Negative (Negative); Blood Urine Negative (Negative); Color Urine Dark Yellow (Yellow); Glucose Urine UA Negative (Negative); Hyaline Casts Urine Present /lpf; Ketones Urine Negative (Negative); Leukocyte Esterase Ur Negative LEU/UL (Negative); Nitrate Urine Negative (Negative); Protein Urine Negative (Negative); RBC Urine >100 /hpf (0-2); Specific Grav Ur 1.016 (1.001-1.035); Squamous Epithelial Cell Urine Many /hpf (Few); Urobilinogen Urine 0.2 mg/dL (<2.0); WBC Urine 0-5 /hpf
[2022-06-03 16:38] LABS: Add Urine Microscopic? YES
[2022-06-03 19:27] LABS: Troponin I < 0.012 ng/mL (0.000-0.034)
== END 2022-06-03 21:06 | disposition home or self-care (01) ==
PROVIDERS: Emergency Medicine; Emergency Provider Emergency Medicine; PCP Internal Medicine
DX: R55 Syncope and collapse (principal); E86.0 Dehydration; I10 Essential (primary) hypertension; K21.9 Gastro-esophageal reflux disease without esophagitis; E78.2 Mixed hyperlipidemia; M85.89 Other specified disorders of bone density and structure, multiple sites; R73.03 Prediabetes; Z96.652 Presence of left artificial knee joint
CPT/HCPCS: 36415; 71046; 80053; 81001; 84484; 85025; 93005; 96361; 96374; 99284; J2405; J7030

== ENCOUNTER 2022-06-24 08:42 | Outpatient (CLI) | payer MEDICARE, BC, SELFPAY ==
--- NOTE | ~2022-06-24 | XR_ITS ---
EXAMINATION: XR abdomen obstructive series DATE: 06/24/2022 09:33 INDICATION: History of IBS. Diarrhea. TECHNIQUE: Supine and upright views of the abdomen. FINDINGS: CT dated 01/26/2017 The visualized lung parenchyma is normal.. There is a nonobstructive bowel gas pattern. Gas and stool are seen throughout the colon to the level of the rectum. There is no free air. Large amount of ret ained fecal material throughout the colon. There is calcification at on the right at the L5 level, mo st likely phlebolith. IMPRESSION: 1. No acute abdominal abnormality. Reviewed, dictated and finalized at location B.
== END 2022-06-24 08:43 | disposition home or self-care (01) ==
LOC: ANHIMG 08:47
PROVIDERS: PCP Family Medicine; Visit Provider Family Medicine
DX: K58.9 Irritable bowel syndrome, unspecified (principal)
CPT/HCPCS: 74019

== ENCOUNTER 2023-05-20 12:30 | Outpatient (CLI) | payer MEDICARE, BC, SELFPAY ==
--- NOTE | 2023-05-24 10:27 | P.PCNPFT_ITS ---
PFT Procedure Performed PFT Procedure Performed Plethysmography (Lung Vol) Diffusing Cap (DLCO) Flow Vol Loop Spirometry w/o Bronchodil PFT Interpretation This is a pulmonary function test with spirometry, plethysmography and diffusing capacity. The test was performed and results interpreted in accordance with the 2019 and 2005 ATS/ERS Task Force guidelines respectively using the Global Lung Function Initiative-2012 reference equations. Patient demonstrated good effort and cooperation. Reproducibility criteria were met. The quality of the spirometry maneuver was Grade A. Findings: Spirometry: The contour the inspiratory and expiratory flow tracing are normal. The FVC is 3.12 L, 117% predicted. The FEV1 is 2.41 L, 116% predicted. The FEV1: FVC ratio 77%. Plethysmography: The total lung capacity is 5.26 L, 111% predicted. The functional residual capacity is 2.18 L, 81% predicted. The residual volume is 2.13 L, 104% predicted. Diffusing capacity: The diffusing capacity unadjusted for hemoglobin and carboxyhemoglobin is 14.3, 72% predicted. The diffusing capacity adjusted for a lveolar volume is 3.29, 75% predicted. In comparison to previous pulmonary function testing on 04/23/2022 the pre bronchodilator FVC is unchanged from 3.17 L to 3.12 L. The pre bronchodilator FEV1 is unchanged from 2.50 L to 2.41 L. The total lung capacity is unchanged from 5.04 L to 5.26 L. The functional residual capacity is unchanged from 2.33 L to 2.18 L. The residual volume is unchanged from 1.87 L to 2.13 L. The diffusing capacity unadjusted for hemoglobin and carboxyhemoglobin is unchanged from 15.0 to 14.3. The diffusing capacity adjusted for alveolar volume is unchanged from 3.61 to 3.29. Impression: The spirometry is normal without evidence of an obstructive abnormality. The lung volumes are normal. The diffusing capacity is normal. In comparison to previous pulmonary function testing on 04/23/2022 there is no significant change in the FVC, FEV1, total lung capacity, functional residual capacity, residual volume, or diffusing capacity. Clinical correlation is re commended.
== END 2023-05-20 12:31 | disposition home or self-care (01) ==
LOC: ANHPFT 12:32
PROVIDERS: PCP Family Medicine; Visit Provider Internal Medicine Critical Care Medicine
DX: J84.9 Interstitial pulmonary disease, unspecified (principal)
CPT/HCPCS: 94375; 94726; 94729

== ENCOUNTER 2023-05-20 13:42 | Outpatient (CLI) | payer MEDICARE, BC, SELFPAY ==
--- NOTE | ~2023-05-20 | CT_ITS ---
EXAMINATION: CT chest high resolution [facility] DATE: 05/20/2023 13:58 INDICATION: ILD TECHNIQUE: Computed tomography (CT) of the chest was performed without intravenous contrast. Addition al 3D reconstructions utilizing coronal maximum intensity projection (MIP) were performed. Automated exposure control and iterative reconstruction technique were employed. The dose-length product was 18 1.53 mGy-cm. COMPARISON: Chest CT dated 03/03/2022 FINDINGS: Mild bronchiectatic change at the bilateral lower lungs. Also in the lower lungs is peripheral predom inant mild irregular septal line thickening and groundglass opacities without honeycombing at the rod ateral lower lungs most consistent with nonspecific interstitial pneumonia (NSIP) pattern chronic int erstitial lung disease. No pleural effusion. Heart size is normal. Small amount of atherosclerotic co ronary artery calcific lesion. No pericardial effusion. Thoracic aorta is normal in caliber. Bilatera l breast implants. Again noted is mild right axillary lymphadenopathy the largest lymph node measurin g 1.9 x 1.2 cm, previously reported as 19 x 16 mm although prior imaging is unavailable at this time for comparison. No other pathologically enlarged thoracic lymphadenopathy. 8 mm low-attenuation hepat ic cyst. Visualized upper abdomen is otherwise unremarkable. Anterior fusion at T10-T11. Mild to mode rate spondylosis in the more cephalad thoracic spine. IMPRESSION: 1. Mild peripheral and lower lung predominant chronic interstitial lung disease in a nonspecific inte rstitial pneumonia (NSIP) pattern with mild associated bronchiectasis. 2. Persistent mild right axillary lymphadenopathy which is most likely reactive. Reviewed, dictated and finalized at location B. IMPRESSION: 1. Mild peripheral and lower lung predominant chronic interstitial lung disease in a nonspecific interstitial pneumonia (NSIP) pattern with mild associated br onchiectasis. 2. Persistent mild right axillary lymphadenopathy which is most likely reactive .
== END 2023-05-20 13:43 ==
PROVIDERS: PCP Family Medicine; Visit Provider Internal Medicine Critical Care Medicine
DX: J84.9 Interstitial pulmonary disease, unspecified (principal)
CPT/HCPCS: 71250

== ENCOUNTER 2023-08-21 11:15 | Outpatient (CLI) | payer MEDICARE, BC, SELFPAY ==
--- NOTE | ~2023-08-21 | MM_ITS ---
EXAMINATION: MM scrn dane implant BI w emre HISTORY: Screening mammogram TECHNIQUE: Craniocaudal and mediolateral oblique 3-D tomosynthesis images with implant displacement a nd synthetic 2-D images were generated. Craniocaudal and mediolateral oblique views of the breasts wi thout implant displacement were obtained using full field digital mammography. CAD analysis was submi tted and interpreted. COMPARISON: Comparison to multiple prior studies sequentially, with oldest reviewed study dated 07/30. BREAST PARENCHYMAL COMPOSITION: Not dense: There are scattered areas of fibroglandular density. FINDINGS: There is no evidence of suspicious mass, calcification, or architectural distortion to sugg est malignancy in either breast. There has been no suspicious interval change. IMPRESSION: 1. No mammographic evidence of malignancy. 2. Recommend routine screening mammography in one year. BI-RADS Category 1: Negative Reviewed, dictated and finalized at location B.
== END 2023-08-21 11:16 | disposition home or self-care (01) ==
LOC: ANHIMG 11:17
PROVIDERS: PCP Family Medicine; Visit Provider Family Medicine
DX: Z12.31 Encounter for screening mammogram for malignant neoplasm of breast (principal)
CPT/HCPCS: 77063; 77067

== ENCOUNTER 2024-01-26 07:41 | Outpatient (CLI) | payer MEDICARE, BC, SELFPAY ==
--- NOTE | ~2024-01-26 | US_ITS ---
Limited ABDOMINAL ULTRASOUND Ordering provider: Vincent Reynolds MD History: . R74.01 - Elevation of levels of liver transaminase levels . Comparison: None. FINDINGS: LIVER: Normal size and echotexture. No focal hepatic lesions or perihepatic fluid collections are kayla ntified. Portal vein flow is normal. GALLBLADDER: Echogenic nonmobile I nonshadowing focus is seen measuring 0.3 x 0.5 cm. This is most li kelley a polyp. No evidence for stones, sludge, gallbladder wall thickening or pericholecystic fluid co llections. A negative sonographic Perez's sign was noted. BILIARY DUCTS: No evidence for intra or extrahepatic biliary dilation. Common bile duct measures 5 mm in diameter which is within normal limits. PANCREAS: Normal echotexture and size. . UPPER ABDOMINAL AORTA: Normal in caliber. IVC: Patent. FREE FLUID: None. IMPRESSION: Gallbladder polyp. Otherwise, Unremarkable limited ultrasound of the abdomen. Reviewed, dictated and finalized at location A. UCE CUTTER
== END 2024-01-26 07:42 | disposition home or self-care (01) ==
LOC: MICIMG 07:42
PROVIDERS: PCP Family Medicine; Visit Provider Family Medicine
DX: R74.01 Elevation of levels of liver transaminase levels (principal); K82.4 Cholesterolosis of gallbladder
CPT/HCPCS: 76705

== ENCOUNTER 2024-05-24 10:22 | Outpatient (CLI) | payer MEDICARE, BC, SELFPAY ==
--- NOTE | ~2024-05-24 | CT_ITS ---
CT Scan of the Chest without Contrast: Clinical Indication: Interstitial lung disease Technique: Contiguous sections were acquired throughout the chest without intravenous contrast. Dose reduction technique was used on this scan by utilizing automated exposure control and iterative recon struction technique. The dose-length product (DLP) was 150.44 mGy-cm. COMPARISON: 05/20/2023 Findings: Stable minimally prominent right axillary lymph nodes. No mediastinal, hilar, or left axill annetta lymphadenopathy. There is no evidence of pleural or pericardial effusion. There is mild bibasilar interstitial disease, with interstitial thickening and subpleural reticulatio n, similar to prior exam. Images through the upper abdomen reveal no abnormalities. Impression: Mild bibasilar chronic interstitial disease, stable from prior exam. Reviewed, dictated and finalized at [facility]. Impression: Mild bibasilar chronic interstitial disease, stable from prior exam.
== END 2024-05-24 10:23 | disposition home or self-care (01) ==
LOC: MICIMG 10:22
PROVIDERS: PCP Family Medicine; Visit Provider Internal Medicine Critical Care Medicine
DX: J84.9 Interstitial pulmonary disease, unspecified (principal)
CPT/HCPCS: 71250

== ENCOUNTER 2024-06-06 14:29 | Outpatient (CLI) | payer MEDICARE, BC, SELFPAY ==
--- OUTSIDE RECORDS SUMMARY | 2024-06-06 16:00 | XMS_ITS | Data Portability ---
Author Organization [facility] Address [address] [place] [address] Assessment No assessment recorded. Plan of Treatment Reminders Order Date Submit Date Provider Last Modified By Organization Details Last Modified Time Details Appointments None record ed. Lab None record ed. Referral None record ed. Procedures None record ed. Surgeries None record ed. Imaging None record ed. Medication Orders None record ed. Patient TargetsNo targets recorded. Patient InstructionsNo instructions recorded. Reason for Referral None Reported. Medical Equipment None Reported. Vitals None Recorded Social History None recorded. Functional Status None recorded. Mental Status None recorded. Family History Nothing Reported. Medical History No medical history recorded. Gynecological HistoryNo gynecological history recorded. Obstetrics History GPAL:G 0 P 0 0 0 0 Immunizations Vaccine Type Date Status Note Provider Nam e and Address Organization Details Recorded Time COVID-19, mRNA, LNP-S, PF, 100 mcg/0.5mL dose or 50 mcg/0.25mL dose 04/04/2020 completed Hailey Torres MA [facility], [place] - [place] 04/04/2020 14:39:39 COVID-19, mRNA, LNP-S, PF, 100 mcg/0.5mL dose or 50 mcg/0.25mL dose 05/02/2020 completed Emery Christy MD Attn: Accounting[address] [facility], [place], [address], [facility] 05/03/2020 16:11:54 Past Encounters Encounter ID Performer Location Encounter Start Date Encounter Closed Date Diagnosis/Indication Diagnosis SNOMED-CT Code Diagnosis ICD10 Code Diagnosis Note [id number] MAX Sanchez [address] [place] [place] [address] 04/04/2020 10:01:14 04/05/2020 07:12:20 Administration of SARS-CoV-2 antigen vaccine [id number] Z23 [id number] Sanchez 14 IM [address] [place] [address] 05/02/2020 10:03:27 05/03/2020 14:11:09 Administration of SARS-CoV-2 antigen vaccine [id number] Z23 Health Concerns Section Related Observation LastModified by Organization Detai ls LastModified Time None Recorded Concern Status LastModified by Organization Details LastModified Time None Recorded Advance Directives Directive None Recorded Payers Encounter Date Sequence Insurance Name Policy Number Policy Jones Covered Member ID Jones Member ID Guarantor Name 04/04/2020 1 [place] Karely Augustefield [id number] [employer] 04/04/2020 2 [place] [id number] Karely Augustefield [id number] [employer] 05/02/2020 1 [place] Karely Augustefield [id number] [employer] 05/02/2020 2 [place]OSS ([place]O) [id number] [employer] [id number] [employer] OBGyn Episode No OBEpisode recorded.
--- OUTSIDE RECORDS SUMMARY | 2024-06-06 16:00 | XMS_ITS | Clinical Summary ---
Author Organization [facility] Address [address] [place] [address] Phone Care Team Providers Care Lead Operator Name Role Phone Gregory Felipe MD Primary Care Provider + Allergies No known active allergies Medications omeprazole (PriLOSEC) 40 mg Capsule, Delayed Release(E.C.) Take 40 mg by mouth daily. Active metFORMIN (GLUCOPHAGE) 500 mg tablet Take 500 mg by mouth 2 times daily with meals. Active multivitamin (DAILY-MINERVA) tablet Take 1 Tablet by mouth 2 times daily. Active calcium carbonate/vitam in D2 (CALCIUM 500 WITH VITAMIN D ORAL) Take by mouth 2 times daily. Active HYDROcodone-mini taminophen (NORCO) 5-325 mg tablet Take 1 to 2 Tablets by mouth every 6 hours as needed for moderate pain. Max Daily Amount: 8 Tablets 50 Tablet 01/05/2018 11:18 AM PRACTICE LEAD 01/03/2018 Active oxyCODONE-aceta minophen (PERCOCET) 5-325 mg tablet Take 1 to 2 Tablets by mouth every 6 hours as needed for severe pain. Max Daily Amount: 8 Tablets 30 Tablet 01/05/2018 11:18 AM PRACTICE LEAD 01/03/2018 Active Active Problems Problem Noted Date Diagnosed Date Primary osteoarthritis of left knee 12/28/2017 Social History Tobacco Use Types Packs/Day Years Used Date Smoking Tobacco: Never Smokeless Tobacco: Never Alcohol Use Standard Drinks/Week Comments Yes 0 (1 standard drink = 0.6 oz pur e alcohol) 3 x's week Comments No Sex and Gender Information Value Date Recorded Sex Assigned at Not on file Legal Sex Female 12:38 PM CDT Gender Identity Not on file Sexual Orientation Not on file Last Filed Vital Signs Vital Sign Reading Time Taken Comments Blood Pressure 127/63 01/05/2018 11:30 AM PRACTICE LEAD Pulse 85 01/05/2018 4:54 AM PRACTICE LEAD Temperature 36.8 C (98.3 F) 01/05/2018 11:30 AM PRACTICE LEAD Respiratory Rate 20 01/05/2018 11:3 0 AM PRACTICE LEAD Oxygen Saturation 94% 01/05/2018 11: 30 AM PRACTICE LEAD Inhaled Oxygen Concentration - - Weight 81.5 kg (179 lb 11.2 oz) 01/04/2018 4:19 AM PRACTICE LEAD Height 156.2 cm (5' 1.5 ) 01/03/2018 11 :15 AM PRACTICE LEAD Body Mass Index 33.4 01/03/2018 11:15 AM PRACTICE LEAD Plan of Treatment Health Maintenance Due Date Last Done Comments DTAP/TDAP/TD VACCINES (1 - Tdap) 1972 BREAST CANCER SCREENING 1993 COLORECTAL SCREENING 1998 Colorectal Cancer Screening 1998 FIT-DNA Q 3 years 1998 FIT/FOBT Q 1 year 1998 Flex Sig/CT Colonography Q 5 years 1998 PNEUMOCOCCAL VACCINE 50+ YEARS (1 of 1 - PCV) 12/18/19 04 ZOSTER VACCINE (1 of 2) 12/18/2003 OSTEOPOROSIS SCREENING 2018 INFLUENZA VACCINE (#1) 2023 RSV VACCINE (60+ or ) (1 - 1-dose 75+ series) 2028 Medical Devices Implanted Type Area Traffic Recorder Device Identifier Shelf Expiration Date Model / Serial / Lot Cement Smartset Hv 40gr [id number] - Snone Implanted:Qty : 1 on 01/03/2018 by Roberto Mejia MD at [facility] Left: Knee [employer] 05/09/2019 [id number] / NONE / [id number] Description: Ins Tib Psn Cr 3-9cd [id number] 0 - Snone Implanted:Qty : 1 on 01/03/2018 by Roberto Mejia MD at [facility] Knee Left: Knee [employer] 07/08/2022 [id number] / NONE / [id number] Comp Tib Psn 5d Szd Lt [id number] 1 - Snone Implanted:Qty : 1 on 01/03/2018 by Roberto Mejia MD at [facility] Knee Left: Knee [employer] 07/09/2027 [id number] / NONE / [id number] Comp Fem Psn Cr Sz7 Lt [id number] 1 - Snone Implanted:Qty : 1 on 01/03/2018 by Roberto Mejia MD at [facility] Knee Left: Knee [employer] 11/08/2027 [id number] / NONE / [id number] All Poly Pat Ve 35mm Malathi Implanted:Qty : 1 on 01/03/2018 by Roberto Mejia MD at [facility] Left: Knee 05/08/2022 [id number] / / [id number] Description:ENTERED ON THE LY -RDJ Insurance BCBS BLUE ACCESS/TRUE BLUE PPO RX [employer] Express Advance Directives For more information, please contact: [phone] * Full Code (Latest Code Status on File) Date Activated Date Inactivated Comments 01/03/2018 11:15 AM 01/05/2018 2:01 PM Care Teams Lead Operator Relationship Specialty Start Date End Date Gregory Felipe MD [address] [place] [address] PCP - General Internal Medicine 12/15/17
--- NOTE | 2024-06-06 16:39 | WPDPFTINT ---
PFT Procedure Performed PFT Procedure Performed Plethysmography (Lung Vol) Diffusing Cap (DLCO) Flow Vol Loop Spirometry w/o Bronchodil PFT Interpretation This is a pulmonary function test with spirometry, plethysmography and diffusing capacity. The test was performed and results interpreted in accordance with the 2019 and 2005 ATS/ERS Task Force guidelines respectively using the Global Lung Function Initiative-2012 reference equations. Patient demonstrated good effort and cooperation. Reproducibility criteria were met. The quality of the spirometry maneuver was Grade A. Findings: Spirometry: The contour the inspiratory and expiratory flow tracing are normal. The FVC is 2.86 L, 109% predicted. The FEV1 is 2.24 L, 109% predicted. The FEV1: FVC ratio 78%. Plethysmography: The total lung capacity is 4.88 L, 103% predicted. The functional residual capacity is 2.56 L, 95% predicted. The residual volume is 1.89 L, 91% predicted. Diffusing capacity: The diffusing capacity unadjusted for hemoglobin and carboxyhemoglobin is 15.1, 77% predicted. The diffusing capacity adjusted for alveolar volume is 3.44, 79% predicted. In comparison to previous pulmonary function testing on 05/20/2023, the FVC is unchanged from 3.12 L to 2.86 L. The FEV1 is unchanged from 2.41 L to 2.24 L. The total lung capacity is unchanged from 5.26 L to 4.88 L. The functional residual capacity is increased from 2.18 L to 2.56 L. The residual volume is unchanged from 2.13 L to 1.89 L. The diffusing capacity unadjusted for hemoglobin and carboxyhemoglobin is unchanged from 14.3 to 15.1. The diffusing capacity adjusted for alveolar volume is unchanged from 3.29 to 3.44. Impression: The spirometry is normal without evidence of an obstructive abnormality. The lung volumes are normal. The diffusing capacity is normal. In comparison to previous pulmonary function testing on 05/20/2023 there has been a greater than anticipated time dependent increase in the functional residual capacity with no significant change in the FVC, FEV1, total lung capacity, residual volume or diffusing capacity. Clinical correlation is recommended.
== END 2024-06-06 14:30 | disposition home or self-care (01) ==
LOC: ANHPFT 14:30
PROVIDERS: PCP Family Medicine; Visit Provider Internal Medicine Critical Care Medicine
DX: J84.9 Interstitial pulmonary disease, unspecified (principal)
CPT/HCPCS: 94375; 94726; 94729

== ENCOUNTER 2025-01-05 07:37 | Outpatient (CLI) | payer MEDICARE, BC, SELFPAY ==
--- NOTE | ~2025-01-05 | DEXA_ITS ---
Bone Density Report Name: DELVIS PARSONS Age: 69 Sex: Female Ethnicity: White Date of : 1955 Indication: postmenopausal; screening for osteoporosis; Referring Provider: MERLIN NEAL Study: Bone densitometry was performed. Exam Date: January 05, 2025 Accession number: [id number] Bone Density: Region BMD T-score Z-score Classification AP Spine(L1-L4) 0.865 -1.7 0.5 Osteopenia Femoral Neck (Left) 0.691 -1.4 0.4 Osteopenia Total Hip (Left) 0.801 -1.2 0.4 Osteopenia Femoral Neck (Right) 0.645 -1.8 0.0 Osteopenia Total Hip (Right) 0.777 -1.4 0.2 Osteopenia Total Hip Mean 0.789 -1.3 0.3 Osteopenia World Health Organization criteria for BMD impression classify patients as: Normal (T-score at or above -1.0), Osteopenia (T-score between -1.0 and -2.5), or Osteoporosis (T-score at or below -2.5). 10-year Fracture Risk(1): Major Osteoporotic Fracture 11% Hip Fracture 2.1% Reported Risk Factors: [place] (), Neck BMD=0.645, BMI=26.4 (1) FRAX(R) Version 3.08. Fracture probability calculated for an untreated patient. Fracture probability may be lower if the patient has received treatment. Impression: The patient has low bone mass, based on the Right Femoral Neck T-score. The patient has an estimated ten-year risk of hip fracture of 2.1% and an estimated ten-year risk of major fracture of 11%, based on the WHO FRAX algorithm. Discussion: BONE DENSITY IS LOW AT ONE OR MORE SKELETAL SITES. This patient's lowest T-score is low at one or more skeletal sites. It meets the World Health Organization's (WHO) criteria for ?low bone mass? (T-score between -1.0 and -2.5). The patient's 10-year risk of fracture as calculated by FRAX is less than the threshold where pharmacological therapy is recommended by the National Osteoporosis Foundation (NOF). However, all treatment decisions require clinical judgment and consideration of individual patient factors, including patient preferences, comorbidities, previous drug use, risk factors not captured in the FRAX model (e.g., frailty, falls, vitamin D deficiency, increased bone turnover, interval significant decline in bone density) and possible under or overestimation of fracture risk by FRAX. The patient should follow a healthful lifestyle (good nutrition with adequate calcium and vitamin D, and appropriate weight-bearing exercise). Follow-Up: Consider repeating this study in 2 to 3 years to reassess this patient's status, or sooner if there is some new clinical indication. Reported by: TYE on 01/05/2025 8:29:00 AM. Reviewed, dictated and finalized at location A.
--- NOTE | ~2025-01-05 | MM_ITS ---
EXAMINATION: MM scrn dane implant BI w emre HISTORY: Screening mammogram TECHNIQUE: Craniocaudal and mediolateral oblique 3-D tomosynthesis images with implant displacement and synthetic 2-D images were generated. Craniocaudal and mediolateral oblique views of the breasts without implant displacement were obtained using full field digital mammography. CAD analysis was submitted and interpreted. COMPARISON: Comparison to multiple prior studies sequentially, with oldest reviewed study dated 08/06/2015. BREAST PARENCHYMAL COMPOSITION: Not dense: There are scattered areas of fibroglandular density. FINDINGS: There is no evidence of suspicious mass, calcification, or architectural distortion to suggest malignancy in either breast. There has been no suspicious interval change. IMPRESSION: 1. No mammographic evidence of malignancy. 2. Recommend routine screening mammography in one year. BI-RADS Category 1: Negative Reviewed, dictated and finalized at location I. COOK
== END 2025-01-05 07:38 | disposition home or self-care (01) ==
LOC: ANHFOHIMG 07:38
PROVIDERS: PCP Family Medicine; Visit Provider Family Medicine
DX: Z12.31 Encounter for screening mammogram for malignant neoplasm of breast (principal); Z78.0 Asymptomatic menopausal state; M85.88 Other specified disorders of bone density and structure, other site; M85.852 Other specified disorders of bone density and structure, left thigh; M85.851 Other specified disorders of bone density and structure, right thigh
CPT/HCPCS: 77063; 77067; 77080